=== PATIENT | female | born 1950 | race Caucasian/White ===

== ENCOUNTER 2019-09-10 08:51 | Observation (INO) | payer MEDICARE ==
[~2019-09-10] VITALS: Ht 162.6 cm; Wt 79.8 kg
[~2019-09-10 08:51] MED LIST: BUPIVACAINE/PF 0.5% ONE; EPINEPHRINE 1 MG/ML, 1ML ONE
[2019-09-10] MEDS ORDERED: LACTATED RINGERS 1,000 ML IV ONE (09:53)
[2019-09-10] MEDS ORDERED: PLEASE ENTER HEIGHT AND WEIGHT MC SCH (10:00)
[2019-09-10 10:08] VITALS: BP 189/107
[2019-09-10] MEDS ORDERED: SERT50TA28 PO (10:13)
[2019-09-10] MEDS ORDERED: OMEP20TA62 PO (10:13)
[2019-09-10] MEDS ORDERED: TYLENOL PM (10:13)
[2019-09-10] MEDS ORDERED: MIDAZOLAM 1 MG/ML, 2ML ONE (10:30)
[2019-09-10] MEDS ORDERED: FENTANYL PF 100 MCG/2ML ONE ×2 (10:30→14:09)
[2019-09-10] MEDS ORDERED: PROPOFOL 10 MG/ML, 20ML ONE (10:31)
[2019-09-10] MEDS ORDERED: DEXAMETHASONE 4 MG/ML, 1ML ONE (10:33)
[2019-09-10] MEDS ORDERED: CEFAZOLIN 1,000 MG ONE ×2 (10:33)
[2019-09-10] MEDS ORDERED: LIDOCAINE-MPF 2% ,5ML ONE (10:33)
[2019-09-10] MEDS ORDERED: ROCURONIUM 10MG/ML,5ML ONE ×2 (10:33→13:34)
[2019-09-10] MEDS ORDERED: ONDANSETRON 2MG/ML, 2ML ONE ×2 (10:33→12:45)
[2019-09-10] MEDS ORDERED: GLYCOPYRROLATE 0.2MG/1ML, 5ML ONE (12:45)
[2019-09-10] MEDS ORDERED: NEOSTIGMINE 1 MG/ML, 10ML ONE (12:45)
[2019-09-10] MEDS ORDERED: ONDANSETRON 2MG/ML, 2ML IV PRN (13:00)
[2019-09-10] MEDS ORDERED: MEPERIDINE/PF 25MG/ML,1ML IVPush PRN (13:00)
[2019-09-10] MEDS ORDERED: ACETAMINOPHEN 325 MG TABLET PO PRN (13:00)
[2019-09-10] MEDS ORDERED: LORazepam 2 MG/ML, 1ML IVPush PRN (13:00)
[2019-09-10] MEDS ORDERED: OXYcodone 5 MG/5 ML ORAL.SOL UDC PO PRN (13:00)
[2019-09-10] MEDS: FENTANYL PF 100 MCG/2ML IV PRN ×2 (14:10→14:15)
[2019-09-10] MEDS ORDERED: KETOROLAC 30 MG/1 ML ONE (14:26)
[2019-09-10] MEDS ORDERED: ACETAMINOPHEN 650 MG/20.3 ML UDC ONE (14:26)
[2019-09-10] MEDS ORDERED: OXYcodone 5 MG/5 ML ORAL.SOL UDC ONE ×2 (14:26→14:45)
[2019-09-10] MEDS ORDERED: PROMETHAZINE 25 MG/ML, 1ML IM PRN (14:30)
[2019-09-10] MEDS ORDERED: ENALAPRILAT 1.25 MG/ML, 2ML IV PRN (14:30)
[2019-09-10] MEDS ORDERED: ONDANSETRON 2MG/ML, 2ML IVPush PRN (14:30)
[2019-09-10] MEDS ORDERED: morphine SULFATE 10 MG/ML, 1ML IV PRN (14:30)
[2019-09-10] MEDS: KETOROLAC 30 MG/1 ML IV PRN ×2 (14:30→20:26)
[2019-09-10] MEDS ORDERED: HYDROcodone/APAP 7.5-325MG/15ML UDC PO PRN (14:30)
[2019-09-10] MEDS: FAMOTIDINE 20 MG/2 ML IV SCH (14:30)
[2019-09-10] MEDS ORDERED: hydrALAzine 20 MG/ML, 1ML IV PRN (14:30)
[2019-09-10] MEDS ORDERED: hydrALAzine 20 MG/ML, 1ML ONE (14:41)
[2019-09-10] MEDS: HYDROmorphone 1 MG/ML, 1ML INJ IVPush PRN ×3 (14:45→15:00)
[2019-09-10] MEDS ORDERED: HYDROmorphone 1 MG/ML, 1ML INJ ONE ×2 (14:45→15:01)
[2019-09-10] MEDS: LACTATED RINGERS 1,000 ML IV SCH ×2 (17:52→23:50)
[2019-09-10 18:51] VITALS: BP 119/65
[2019-09-11 01:07] VITALS: BP 149/74
[2019-09-11] MEDS: KETOROLAC 30 MG/1 ML IV PRN ×2 (02:48→09:18)
[2019-09-11] MEDS: FAMOTIDINE 20 MG/2 ML IV SCH (02:48)
[2019-09-11 05:05] VITALS: BP 162/76
[2019-09-11 05:52] VITALS: BP 144/81
[2019-09-11] MEDS ORDERED: ACETAMINOPHEN 650 MG/20.3 ML UDC PO PRN (06:00)
[2019-09-11 06:33] VITALS: BP 122/59
[2019-09-11] MEDS: LACTATED RINGERS 1,000 ML IV SCH (08:57)
[2019-09-11] MEDS ORDERED: ENOXAPARIN 40 MG/0.4 ML SQ SCH (09:30)
[2019-09-11] MEDS ORDERED: HYDR15SO3 PO (10:15)
== END 2019-09-11 10:35 | disposition home or self-care (01) ==
LOC: OUT 08:51 → ORIP 14:08 → 4NE 15:57 → DCLOUNGE 09-11 10:28
PROVIDERS: ADMIT Thoracic Surgery (Cardiothoracic Vascular Surgery); ATTEND Thoracic Surgery (Cardiothoracic Vascular Surgery)
DX: K44.9 Diaphragmatic hernia without obstruction or gangrene (principal); K21.9 Gastro-esophageal reflux disease without esophagitis; K66.0 Peritoneal adhesions (postprocedural) (postinfection); I10 Essential (primary) hypertension
CPT/HCPCS: 43280; 93005; 96372; 96374; 96375; 96376; G0378; J0171; J0690; J1100; J1170; J1650; J1885; J2250; J2405; J2704; J2710; J3010; J3490; J7120; S0020; S2900